=== PATIENT | male | born 1950 | race Caucasian/White ===

== ENCOUNTER 2016-06-17 12:19 | Inpatient (IN) | payer OTHER ==
[2016-06-17] MEDS ORDERED: ACETAMINOPHEN 325 MG TAB PO PRN (13:15)
--- NOTE | 2016-06-17 13:30 | PDCARPN ---
Cardiology Progress Note Chief Complaint: long-standing persistent AF Assessment/Plan: Assessment: 65y/o M PMH PAF, PVCs, likely NICM with LVEF 45%, here for Sotalol dose increase and likely DCCV. #. persistent AF. He reports feeling mostly well but does note that his HR will feel irregular in the evenings when he is sitting/readin has not noted any decline in exercise tolerance #. likely NICM. EF is now 45%/ decrement thought to be due to loss of atrial kick #. LOS: needs to be inpatient for Sotalol dosing #. DVT ppx: on Warfarin and plan for ad akrma activity 06/17/16 13:24 Subjective: Feels well. No cp, dyspnea, pnd/orthopnea, peripheral edema. Objective: Vital Signs (8 Hrs) Temp Pulse Resp BP Pulse Ox 06/17/16 12:41 98.4 F 87 16 127/80 H 91 L Echocardiogram: Echo from our office 05/22/16: EF 40-45%, impaired diastolic fxn; LA severe dilated, RA mod-severe dilated, mild MR, RV mild dilated - Physical Exam Constitutional: healthy appearing, no apparent distress Eyes: PERRL Ears, Nose, Mouth, Throat: moist mucous membranes Cardiovascular: no murmurs, no rubs, irregularly irregular Respiratory: clear to auscultate bilat, no crackles Gastrointestinal: normoactive bowel sounds, no tenderness Genitourinary: no suprapubic tenderness, No madden in urethra Skin: no rashes, no abrasions Neurologic: AAOx3 Psychiatric: cooperative, interactive ICD10 Worksheet Patient Problems: Problems Problem Status Diagnosed Atrial fibrillation Acute HTN (hypertension) Acute PVCs (premature ventricular contractions) Acute
--- NOTE | 2016-06-17 13:31 | CPEKG ---
Heart Rate: 104 RR Interval: 577 QRSD Interval: 88 QT Interval: 368 QTC Interval: 484 QRS [place]: 23 T Wave [place]: 59 EKG Severity - ABNORMAL ECG - EKG Impression: ATRIAL FIBRILLATION EKG Impression: RUN OF VENTRICULAR PREMATURE COMPLEXES EKG Impression: BORDERLINE INFERIOR Q WAVES EKG Impression: BORDERLINE T ABNORMALITIES, LATERAL LEADS Electronically Signed By: Ciaran Collado 17-Jun-2016 13:41:07
[2016-06-17] MEDS ORDERED: SOTALOL HCL 80 MG TAB PO SCH (14:00)
[2016-06-17 14:08] LABS: % IMMATURE GRANULYOCYTES 0.4 % (0.0-1.1); ABSOLUTE IMMATURE GRANULOCYTES 0.02 10^3/uL (0.00-0.10); ADD DIFF? NO; ADD MORPH? NO; ADD SCAN? NO; ATYPICAL LYMPHOCYTE FLAG 10 (0-99); FRAGMENT RBC FLAG 0 (0-99); HEMATOCRIT 49.6 % (40.0-51.0); HEMOGLOBIN 16.9 g/dL (13.7-17.5); LEFT SHIFT FLG 10 (0-99); LIPEMIA HEMOLYSIS FLAG 90 (0-99); MEAN CELL HEMOGLOBIN 30.2 pg (27.9-34.1); MEAN CELL HEMOGLOBIN CONCENTR. 34.1 g/dL (32.4-36.7); MEAN CELL VOLUME 88.6 fL (81.5-99.8); MEAN PLATELET VOLUME 10.1 fL (8.7-11.7); PLATELET CLUMPS FLAG 0 (0-99); PLATELET COUNT 146 10^3/uL (150-400); RED CELL DISTRIBUTION WIDTH 14.4 % (11.5-15.2)
[2016-06-17 14:19] LABS: INR 2.36 (0.83-1.16)
[2016-06-17 14:20] LABS: ANION GAP 12 mEq/L (8-16); APTT 35.4 SEC (23.0-38.0); CALCIUM 9.1 mg/dL (8.5-10.4); CARBON DIOXIDE 23 mEq/l (22-31); CHLORIDE 108 mEq/L (97-110); CREATININE 0.8 mg/dL (0.7-1.3); GLOMERULAR FILTRATION RATE > 60; GLUCOSE 82 mg/dL (70-100); MAGNESIUM 1.9 mg/dL (1.6-2.3); SODIUM 143 mEq/L (134-144)
[2016-06-17] MEDS ORDERED: SOTALOL HCL 80 MG TAB PO ONE (14:25)
[2016-06-17] MEDS ORDERED: WARFARIN SODIUM 5 MG TAB PO SCH ×2 (16:00→18:00)
--- NOTE | 2016-06-17 18:05 | CPEKG ---
Heart Rate: 107 RR Interval: 561 QRSD Interval: 92 QT Interval: 384 QTC Interval: 513 QRS Max: 13 T Wave Max: 82 EKG Severity - ABNORMAL ECG - EKG Impression: ATRIAL FIBRILLATION, V-RATE 66-84 EKG Impression: PAIRED VENTRICULAR PREMATURE COMPLEXES EKG Impression: BORDERLINE T WAVE ABNORMALITIES Electronically Signed By: Ruben Peterson 18-Jun-2016 14:18:16
[2016-06-17] MEDS: diphenhydrAMINE 25 MG CAP PO PRN (20:53)
[2016-06-18 05:03] LABS: INR 2.5 (0.83-1.16); PROTIME(PATIENT) 27.3 SEC (12.0-15.0)
[2016-06-18 05:31] LABS: ANION GAP 12 mEq/L (8-16); CALCIUM 8.4 mg/dL (8.5-10.4); CARBON DIOXIDE 22 mEq/l (22-31); CHLORIDE 108 mEq/L (97-110); CREATININE 0.8 mg/dL (0.7-1.3); GLOMERULAR FILTRATION RATE > 60; GLUCOSE 89 mg/dL (70-100); MAGNESIUM 1.9 mg/dL (1.6-2.3); POTASSIUM 4.1 mEq/L (3.5-5.2); SODIUM 142 mEq/L (134-144)
--- NOTE | 2016-06-18 05:38 | CPEKG ---
Heart Rate: 74 RR Interval: 811 QRSD Interval: 86 QT Interval: 432 QTC Interval: 480 QRS [place]: 30 T Wave [place]: 64 EKG Severity - ABNORMAL ECG - EKG Impression: ATRIAL FIBRILLATION, V-RATE 64-80 EKG Impression: LEFT VENTRICULAR HYPERTROPHY EKG Impression: BORDERLINE PROLONGED QT INTERVAL Electronically Signed By: Ruben Peterson 18-Jun-2016 14:18:10
[2016-06-18] MEDS ORDERED: SOTALOL HCL 80 MG TAB PO SCH (06:00)
--- NOTE | 2016-06-18 08:52 | CPEKG ---
Heart Rate: 65 RR Interval: 923 QRSD Interval: 96 QT Interval: 432 QTC Interval: 450 QRS [place]: 37 T Wave [place]: 72 EKG Severity - ABNORMAL ECG - EKG Impression: ATRIAL FIBRILLATION, V-RATE 51-76 EKG Impression: VENTRICULAR PREMATURE COMPLEX EKG Impression: LEFT VENTRICULAR HYPERTROPHY Electronically Signed By: Ruben Peterson 18-Jun-2016 14:18:03
[2016-06-18] MEDS: BENAZEPRIL HCL 20 MG TAB PO SCH (10:12)
[2016-06-18] MEDS: MULTIVITAMINS 1 EACH TAB PO SCH (10:13)
--- NOTE | 2016-06-18 13:54 | PDCARPN ---
Cardiology Progress Note Chief Complaint: AF Assessment/Plan: Assessment: 65y/o M PMH PAF, PVCs, likely NICM with LVEF 45%, here for Sotalol dose increase and likely DCCV. #. persistent AF. He reports feeling mostly well but does note that his HR will feel irregular in the evenings when he is sitting/reading has not noted any decline in exercise tolerance #. likely NICM. EF is now 45%/ decrement thought to be due to loss of atrial kick #. LOS: needs to be inpatient for Sotalol dosing likely DC tomorrow after DCCV #. DVT ppx: on Warfarin and plan for ad karma activity 06/18/16 13:53 Subjective: Feels well. Objective: Vital Signs (8 Hrs) Temp Pulse Resp BP Pulse Ox 06/18/16 11:38 97.6 F 54 L 20 116/78 95 06/18/16 07:48 98.6 F 58 L 13 121/79 H 95 Intake/Output (24 Hrs) 06/17/16 06/18/16 06/19/16 05:59 05:59 05:59 Intake Total 400 Balance 400 Intake: Oral (ml) 400 Other: Weight 95.254 kg Intake Quantity Yes Sufficient Result Diagrams: 06/17/16 14:00 06/18/16 03:58 Telemetry: AF - Physical Exam Constitutional: healthy appearing, no apparent distress Cardiovascular: irregularly irregular ICD10 Worksheet Patient Problems: Problems Problem Status Diagnosed Atrial fibrillation Acute HTN (hypertension) Acute PVCs (premature ventricular contractions) Acute
[2016-06-18] MEDS ORDERED: WARFARIN SODIUM 5 MG TAB PO SCH ×2 (16:00→18:00)
[2016-06-18] MEDS: SOTALOL HCL 80 MG TAB PO SCH (19:07)
[2016-06-18] MEDS: diphenhydrAMINE 25 MG CAP PO PRN (21:09)
[2016-06-19 05:14] LABS: INR 2.39 (0.83-1.16); PROTIME(PATIENT) 26.3 SEC (12.0-15.0)
[2016-06-19 05:15] LABS: APTT 36.3 SEC (23.0-38.0)
[2016-06-19 05:36] LABS: ANION GAP 8 mEq/L (8-16); CALCIUM 8.4 mg/dL (8.5-10.4); CARBON DIOXIDE 25 mEq/l (22-31); CHLORIDE 108 mEq/L (97-110); CREATININE 0.8 mg/dL (0.7-1.3); GLOMERULAR FILTRATION RATE > 60; GLUCOSE 91 mg/dL (70-100); POTASSIUM 4.2 mEq/L (3.5-5.2); SODIUM 141 mEq/L (134-144)
[2016-06-19] MEDS: SOTALOL HCL 80 MG TAB PO SCH (06:21)
[2016-06-19] MEDS: MULTIVITAMINS 1 EACH TAB PO SCH (08:33)
[2016-06-19] MEDS: BENAZEPRIL HCL 20 MG TAB PO SCH (08:33)
--- NOTE | 2016-06-19 09:04 | CPEKG ---
Heart Rate: 66 RR Interval: 909 QRSD Interval: 88 QT Interval: 444 QTC Interval: 466 QRS [place]: 5 T Wave [place]: 71 EKG Severity - ABNORMAL ECG - EKG Impression: ATRIAL FIBRILLATION, V-RATE 42-83 EKG Impression: VENTRICULAR TRIGEMINY EKG Impression: CONSIDER LEFT VENTRICULAR HYPERTROPHY Electronically Signed By: Ruben Peterson 19-Jun-2016 15:03:44
[2016-06-19] MEDS ORDERED: MIDAZOLAM 2 MG/2 ML VIAL IVP ONE (10:00)
[2016-06-19] MEDS ORDERED: ATROPINE SULFATE 1 MG/10 ML SYR ONE (10:39)
[2016-06-19] MEDS ORDERED: PROPOFOL 200 MG/20 ML VIAL ONE ×4 (11:31→13:41)
--- NOTE | 2016-06-19 12:14 | CPEKG ---
Heart Rate: 59 RR Interval: 1017 P-R Interval: 220 QRSD Interval: 92 QT Interval: 456 QTC Interval: 452 P [place]: 31 QRS [place]: -5 T Wave [place]: 46 EKG Severity - ABNORMAL ECG - EKG Impression: SINUS RHYTHM EKG Impression: FIRST DEGREE AV BLOCK Electronically Signed By: Ruben Peterson 19-Jun-2016 15:03:36
--- NOTE | 2016-06-19 13:33 | EPPROC ---
Electrophysiology Procedure Note: Procedure: CV Indication: Symptomatic AF Procedure: Pt underwent JOSÉ which is reported separately. No LA clot. pt underwent 200J of DCCV with successful conversion to SR. Conclusion: Successful CV Patient Problems: Problems Problem Status Diagnosed Atrial fibrillation Acute HTN (hypertension) Acute PVCs (premature ventricular contractions) Acute
[2016-06-19] MEDS ORDERED: fentaNYL 100 MCG/2 ML INJ ONE (13:38)
[2016-06-19 14:08] VITALS: BP 118/82; PULSE 59; RESP 18; TEMP 98.2; O2SAT 92
--- NOTE | 2016-06-19 15:05 | CPEKG ---
Heart Rate: 76 RR Interval: 789 QRSD Interval: 90 QT Interval: 416 QTC Interval: 468 QRS [place]: 11 T Wave [place]: 75 EKG Severity - ABNORMAL ECG - EKG Impression: ATRIAL FIBRILLATION EKG Impression: MULTIFORM VENTRICULAR PREMATURE COMPLEXES EKG Impression: BORDERLINE T WAVE ABNORMALITIES Electronically Signed By: Ruben Peterson 19-Jun-2016 15:03:53
--- NOTE | 2016-06-20 11:55 | GDS ---
[f rep st] DISCHARGE SUMMARY DISCHARGE DIAGNOSES: 1. Persistent atrial fibrillation status post sotalol titration on this admission with increased dos e from 80 mg to 120 mg p.o. b.i.d. 2. Likely nonischemic cardiomyopathy with a recent decrement in ejection fraction to 45%, likely due to loss of atrial kick in presence of persistent atrial fibrillation. 3. Diarrhea with Sapovirus found on gastrointestinal panel on this admission. PROCEDURES: 1. Transesophageal echocardiography cardioversion on 06/19/2016 with alevism of sinus rhythm. 2. Serial electrocardiograms. BRIEF HISTORY: Please see dictated H and P from our office for complete details. In brief, the efrain ent is a 65-year-old male with a known history of atrial fibrillation that had been previously contro lled on sotalol. Over the past few months, he has had persistent AFib. His ejection fraction was de creased to 45%. He was brought in for increase of his sotalol dose from 80 mg p.o. b.i.d. to 120 mg p.o. b.i.d. He tolerated this increase well. On day of discharge, he was cardioverted. He did noti ce some diarrhea through his hospital course. GI panel was obtained and it showed Sapovirus. He was advised on supportive measures for this. RESULTS PENDING: None. DIET: Per previous. ACTIVITY: As tolerated. DISCHARGE MEDICATIONS: Please see medication reconciliation for complete detail. He is being discharged on his home warfarin, multivitamin, amlodipine, benazepril. His sotalol dose has been increased to 120 p.o. b.i.d. and a prescription has been sent to his pharmacy. FOLLOWUP: 1. Follow up with an EKG in 1 week's time. 2. Follow up with Dr. Collado in 1 month's time. /[id number]/MODL
== END 2016-06-19 15:25 | disposition home or self-care (01) | DRG 309 ==
LOC: F2W 12:19 → OBSVTOIN 12:41
PROVIDERS: ADMIT Internal Medicine Cardiovascular Disease; ATTEND Internal Medicine Cardiovascular Disease
PROC: B245ZZ4 Ultrasonography of Left Heart, Transesophageal (ICD-10-PCS; principal; 2016-06-19)
PROC: 5A2204Z Restoration of Cardiac Rhythm, Single (ICD-10-PCS; principal; 2016-06-19)
DX: I48.1 Persistent atrial fibrillation (principal); A08.39 Other viral enteritis; I42.9 Cardiomyopathy, unspecified
CPT/HCPCS: J0461; J2250; J2704; J3010

== ENCOUNTER → 2016-08-13 | Outpatient (CLI) | payer OTHER | LOC: BHFA 10:45 | PROVIDERS: ATTEND Internal Medicine Cardiovascular Disease | DX: I48.91 Unspecified atrial fibrillation (principal); R00.2 Palpitations ==

== ENCOUNTER → 2017-03-05 | Outpatient (CLI) | payer OTHER | LOC: BHFA 09:00 | PROVIDERS: ATTEND Internal Medicine Cardiovascular Disease | DX: I49.3 Ventricular premature depolarization (principal) ==

== ENCOUNTER → 2017-03-06 | Outpatient (CLI) | payer OTHER | LOC: BHFA 13:00 | PROVIDERS: ATTEND Internal Medicine Interventional Cardiology | DX: I48.91 Unspecified atrial fibrillation (principal); I49.3 Ventricular premature depolarization; I49.1 Atrial premature depolarization; I10 Essential (primary) hypertension | CPT/HCPCS: 78452; 93017; A9500; J2785 ==

== ENCOUNTER → 2017-09-10 | Outpatient (CLI) | payer OTHER | LOC: BHFA 09:00 | PROVIDERS: ATTEND Internal Medicine Cardiovascular Disease | DX: I49.3 Ventricular premature depolarization (principal) ==

== ENCOUNTER → 2017-09-23 | Outpatient (CLI) | payer OTHER | LOC: BHFA 09:15 | PROVIDERS: ATTEND Internal Medicine Cardiovascular Disease | DX: I49.3 Ventricular premature depolarization (principal) ==

== ENCOUNTER → 2018-04-28 | Outpatient (CLI) | payer OTHER | LOC: BHFA 10:00 | PROVIDERS: ATTEND Internal Medicine Cardiovascular Disease | DX: I48.91 Unspecified atrial fibrillation (principal) ==

== ENCOUNTER 2018-05-10 10:04 | Day surgery (SDC) | payer OTHER ==
[2018-05-10] MEDS ORDERED: BENZOCAINE UNIT DOSE SPRAY HURRICAINE MM ONE (10:06)
[2018-05-10] MEDS ORDERED: fentaNYL 100 MCG/2 ML INJ IVP ONE (10:06)
[2018-05-10] MEDS ORDERED: MIDAZOLAM 2 MG/2 ML VIAL IVP ONE (10:06)
[2018-05-10] MEDS ORDERED: ATROPINE SULFATE 1 MG/10 ML SYR IVP ONE (10:06)
[2018-05-10] MEDS ORDERED: NS 500 ML IV ONE (10:06)
[2018-05-10 10:49] LABS: INR 2.44 (0.83-1.16); PROTIME(PATIENT) 26.5 SEC (12.0-15.0)
--- NOTE | 2018-05-10 11:59 | PDHPUP ---
History & Physical Update H&P update statement: This history and physical update is based on an assessment of the patient which was completed after admission or registration (within 24 hours), but prior to the surgery/procedure. H&P update: H&P reviewed & patient examined, no change in patient's condition since H&P completed
--- NOTE | 2018-05-10 12:04 | PDANEPAE ---
ANE History of Present Illness A-fib ANE Past Medical History - Cardiovascular History Hx Hypertension: Yes Hx Arrhythmias: Yes - Pulmonary History Hx Oxygen in Use at Home: No Hx Sleep Apnea: No - Endocrine History Hx Diabetes: No ANE Review of Systems Review of Systems: ANE Patient History - Allergies Allergies/Adverse Reactions: No Known Allergies Allergy (Unverified 10/31/13 10:32) - Home Medications Home medications: home medication list seen and reviewed Home Medications: Warfarin Sodium [Coumadin 5MG (*)] 5 mg PO MWF@18 03/20/14 [Last Taken 05/07/18 18:00] Warfarin Sodium [Coumadin 5MG (*)] 7.5 mg PO SUTUTHSA@18 03/20/14 [Last Taken 18:00] Acetaminophen/Diphenhydramine [Acetaminophen-Diphenhyd 500-25] 1 tab PO HS 06/17 [Last Taken 06/16/16 21:00] Herbals/Supplements -Info Only 1 ea PO DAILY 06/17/16 [Last Taken 06/16/16 07:00 ] Multivitamins [Multivitamin (*)] 1 each PO DAILY 06/17/16 [Last Taken 06/17/16 06:00] amLODIPine BESYLATE [Norvasc 10 mg (*)] 10 mg PO DAILY 06/17/16 [Last Taken 03/18 06:00] - NPO status NPO Status: no food or drink >8 hours - Anes Hx Anes Hx: no prior problems - Smoking Hx Smoking Status: Former smoker ANE Labs/Vital Signs - Labs Result Diagrams: 05/10/18 10:20 - Vital Signs Height: 185 cm Weight: 95.3 kg ANE Physical Exam - Airway Neck exam: FROM Mallampati Score: Class 2 Mouth exam: normal dental/mouth exam - Pulmonary Pulmonary: no respiratory distress - Cardiovascular Cardiovascular: regular rate and rhythym - ASA Status ASA Status: III ANE Anesthesia Plan Anesthesia Plan: MAC (with IV brief GA)
[2018-05-10] MEDS ORDERED: ATROPINE SULFATE 1 MG/10 ML SYR ONE (12:08)
[2018-05-10] MEDS ORDERED: LIDOCAINE 1% 5 ML SDV ONE (12:11)
[2018-05-10] MEDS ORDERED: PROPOFOL 200 MG/20 ML VIAL ONE (12:11)
--- NOTE | 2018-05-10 12:28 | PDTEE1 ---
JOSÉ Cardioversion Procedure Procedure: electrical cardioversion, transesophageal echo Indications: atrial fibrillation Consent: signed and in chart Anticoagulation: warfarin Procedural Details: Sedation provided by the anesthesia service. Pads were placed in anterior- posterior position. JOSÉ probe was advanced and standard images obtained. There is no evidence of left atrial or left atrial appendage thrombus. Synchronized cardioversion attempt #1: 200J Results: normal sinus rhythm Conclusions: successful JOSÉ cardioversion Patient Problems: Problems Problem Status Onset Atrial fibrillation Acute HTN (hypertension) Acute PVCs (premature ventricular contractions) Acute
--- NOTE | 2018-05-10 12:37 | POSTANESTH ---
Post Anesthetic Evaluation Cardiovascular Status: Similar to Pre-Op Cond Respiratory Status: Similar to Pre-op Cond. Level of Consciousness/Mental Status: Can Participate in Eval Pain Control: Adequate, Prn Tx Ordered Nausea/Vomiting Control: Adequate, Prn Tx Ordered Complications Possibly Related to Anesthesia: None Noted
--- NOTE | 2018-05-10 16:15 | CPEKG ---
Test Reason : OPEN Blood Pressure : / mmHG Vent. Rate : 063 BPM Atrial Rate : 000 BPM P-R Int : 207 ms QRS Dur : 098 ms QT Int : 436 ms P-R-T Axes : 000 018 067 degrees QTc Int : 447 ms Atrial fibrillation Ventricular premature complex Confirmed by Nilton Ohara ([id number]) on 05/10/2018 4:15:00 PM Referred By: Confirmed By:Nilton Ohara
--- NOTE | 2018-05-10 16:18 | CPEKG ---
Test Reason : OPEN Blood Pressure : / mmHG Vent. Rate : 069 BPM Atrial Rate : 054 BPM P-R Int : 240 ms QRS Dur : 097 ms QT Int : 465 ms P-R-T Axes : 077 -05 055 degrees QTc Int : 499 ms Sinus rhythm Ventricular trigeminy First degree AV block Borderline prolonged QT interval Confirmed by Nilton Ohara ([id number]) on 05/10/2018 4:18:25 PM Referred By: Confirmed By:Nilton Ohara
--- NOTE | 2018-05-10 23:28 | ECHO ---
[email or web address] [address] [address] Main: [phone] Fax: Transesophageal Echocardiography Name: JAUN KELLEY MR#: [id number] Study Date: 05/10/2018 Study Time: 12:02 PM Date of : 1950 Age: 67 year(s) Height: ( ) Weight: ( ) BSA: Gender: Male Examination: JOSÉ Indication: Pre Cardioversion Image Quality: Contrast: Requested by: Amalia Martinez Heart Rate: Rhythm: Atrial fibrillation BP: / Procedure Staff Oil Producer: Gautam Raines RDCS Reading Physician: Amalia Martinez MD Requesting Provider: JOSÉ Exam Details Conclusions: Normal global systolic LV function. An agitated saline study was performed and was negative for intracardiac shunting. No thrombus in left appendage. Mild to moderate mitral regurgitation. Proceeded with successful elective DC cardioversion.. Measurements: Chambers Valvular Assessment AV/MV Valvular Assessment TV/PV Normal Normal Normal Name Value Range Name Value Range Name Value Range Additional Measurements: Findings: Left Ventricle: Normal global systolic LV function. Left Atrium: An agitated saline study was performed and was negative for intracardiac shunting. Left Atrial Appendage: Good color flow doppler in the left atrial appendage. Normal PW-Doppler flow pattern. No thrombus in left appendage. Right Atrium: The right atrium is normal in size. Patient: JAUN KELLEY Study Date: 05/10/2018 Page 1 of 2 12:02 PM Mitral Valve: The mitral valve is normal in appearance. Mild to moderate mitral regurgitation. Aortic Valve: The aortic valve is tri-leaflet. There is no aortic valve regurgitation. No aortic valve stenosis is present. Tricuspid Valve: The tricuspid valve is normal in appearance and function. Trivial tricuspid valve regurgitation. Pulmonic Valve: The pulmonic valve is normal in appearance and function. Aorta: The aorta is normal. Pericardium: No pericardial effusion. Exam Comments: Proceeded with successful elective DC cardioversion.. l1n (No Signature Object) Patient: JAUN KELLEY Study Date: 05/10/2018 Page 2 of 2 12:02 PM [id number]
== END 2018-05-10 13:35 | disposition home or self-care (01) ==
LOC: FCATH 10:04
PROVIDERS: ATTEND Internal Medicine Cardiovascular Disease
PROC: 5A2204Z Restoration of Cardiac Rhythm, Single (ICD-10-PCS; principal; 2018-05-10)
DX: I48.91 Unspecified atrial fibrillation (principal)
CPT/HCPCS: J0461; J2704

== ENCOUNTER 2018-06-09 07:01 | Day surgery (SDC) | payer OTHER ==
[2018-06-09] MEDS ORDERED: NS 500 ML IV ONE (07:05)
[2018-06-09] MEDS ORDERED: BENZOCAINE UNIT DOSE SPRAY HURRICAINE MM ONE (07:05)
[2018-06-09] MEDS ORDERED: ATROPINE SULFATE 1 MG/10 ML SYR IVP ONE (07:05)
[2018-06-09] MEDS ORDERED: MIDAZOLAM 2 MG/2 ML VIAL IVP ONE (07:05)
[2018-06-09] MEDS ORDERED: fentaNYL 100 MCG/2 ML INJ IVP ONE (07:05)
--- NOTE | 2018-06-09 07:45 | PDGENHP ---
History & Physical Chief Complaint: af, symptomatic Relevant Physical Exam: s1s2 irreg. cta ao3 Cardiorespiratory Assessment: for cv
[2018-06-09 07:58] LABS: INR 2.35 (0.83-1.16); PROTIME(PATIENT) 25.7 SEC (12.0-15.0)
[2018-06-09] MEDS ORDERED: PROPOFOL 200 MG/20 ML VIAL ONE (08:13)
--- NOTE | 2018-06-09 08:15 | PDANEPAE ---
ANE History of Present Illness a-fib with rvr ANE Past Medical History - Cardiovascular History Hx Hypertension: Yes Hx Arrhythmias: Yes Cardiovascular History Comment: h/o a-fib with rvr, cardioverted x 3, will get ablation next month - Pulmonary History Hx COPD: No Hx Asthma/Reactive Airway Disease: No Hx Recent Upper Respiratory Infection: No Hx Oxygen in Use at Home: No Hx Sleep Apnea: No - Endocrine History Hx Diabetes: No Hypothyroid: No Hyperthyroid: No Obesity: mild - Renal History Hx Renal Disorders: No - Liver History Hx Hepatic Disorders: No - Neurological & Psychiatric Hx Hx Neurological and Psychiatric Disorders: No ANE Review of Systems Review of systems is: negative Review of Systems: - Exercise capacity Exercise capacity: >=4 METS ANE Patient History - Allergies Allergies/Adverse Reactions: No Known Allergies Allergy (Unverified 10/31/13 10:32) - Home Medications Home medications: home medication list seen and reviewed Home Medications: Warfarin Sodium [Coumadin 5MG (*)] 5 mg PO MWF@18 03/20/14 [Last Taken 2 Days Ago ~06/07/18] Warfarin Sodium [Coumadin 5MG (*)] 7.5 mg PO SUTUTHSA@18 03/20/14 [Last Taken 1 Day Ago ~06/08/18] Acetaminophen/Diphenhydramine [Acetaminophen-Diphenhyd 500-25] 1 tab PO HS 06/17 [Last Taken 1 Day Ago ~06/08/18] Herbals/Supplements -Info Only 1 ea PO DAILY 06/17/16 [Last Taken 06/09/18] Multivitamins [Multivitamin (*)] 1 each PO DAILY 06/17/16 [Last Taken 06/09/18] amLODIPine BESYLATE [Norvasc 10 mg (*)] 10 mg PO DAILY 06/17/16 [Last Taken 02/17] - NPO status NPO Status: no food or drink >8 hours - Anes Hx Anes Hx: no prior problems - Smoking Hx Smoking Status: Former smoker ANE Labs/Vital Signs - Labs Result Diagrams: 06/09/18 07:25 - Vital Signs Height: 185.42 cm Weight: 95.254 kg ANE Physical Exam - Airway Neck exam: FROM Mallampati Score: Class 2 Mouth exam: normal dental/mouth exam - Pulmonary Pulmonary: no respiratory distress - Cardiovascular Cardiovascular: regular rate and rhythym - ASA Status ASA Status: II ANE Anesthesia Plan Anesthesia Plan: GA with mask
--- NOTE | 2018-06-09 08:30 | POSTANESTH ---
Post Anesthetic Evaluation Cardiovascular Status: Normal, Stable Respiratory Status: Normal, Stable Level of Consciousness/Mental Status: Can Participate in Eval Pain Control: Adequate, Prn Tx Ordered Nausea/Vomiting Control: Adequate, Prn Tx Ordered Complications Possibly Related to Anesthesia: None Noted
--- NOTE | 2018-06-09 15:43 | PDCARD ---
Cardioversion Procedure Procedure: electrical cardioversion Indications: atrial fibrillation Consent: signed and in chart Anticoagulation: warfarin Procedural Details: Pads were placed in anterior-posterior position. Synchronized cardioversion attempt #1: 100J Results: normal sinus rhythm Conclusions: successful cardioversion Patient Problems: Problems Problem Status Onset Atrial fibrillation Acute PVCs (premature ventricular contractions) Acute HTN (hypertension) Acute
--- NOTE | 2018-06-10 14:30 | CPEKG ---
Test Reason : OPEN Blood Pressure : / mmHG Vent. Rate : 072 BPM Atrial Rate : 000 BPM P-R Int : 067 ms QRS Dur : 096 ms QT Int : 435 ms P-R-T Axes : 000 005 062 degrees QTc Int : 477 ms Atrial fibrillation Paired ventricular premature complexes Borderline prolonged QT interval Confirmed by Nilton Ohara ([id number]) on 06/10/2018 2:29:48 PM Referred By: Confirmed By:Nilton Ohara
--- NOTE | 2018-06-10 14:31 | CPEKG ---
Test Reason : OPEN Blood Pressure : / mmHG Vent. Rate : 051 BPM Atrial Rate : 048 BPM P-R Int : 227 ms QRS Dur : 095 ms QT Int : 456 ms P-R-T Axes : 046 000 054 degrees QTc Int : 420 ms Sinus rhythm Ventricular trigeminy First degree AV block. Confirmed by Nilton Ohara ([id number]) on 06/10/2018 2:30:45 PM Referred By: Confirmed By:Nilton Ohara
== END 2018-06-09 09:36 | disposition home or self-care (01) ==
LOC: FCATH 07:01
PROVIDERS: ATTEND Internal Medicine Cardiovascular Disease
PROC: 5A2204Z Restoration of Cardiac Rhythm, Single (ICD-10-PCS; principal; 2018-06-09)
DX: I48.1 Persistent atrial fibrillation (principal); Z79.01 Long term (current) use of anticoagulants; I10 Essential (primary) hypertension; E66.09 Other obesity due to excess calories; Z87.891 Personal history of nicotine dependence
CPT/HCPCS: J2704

== ENCOUNTER 2018-09-30 08:33 | Day surgery (SDC) | payer OTHER ==
[2018-09-30] MEDS ORDERED: MIDAZOLAM 2 MG/2 ML VIAL IVP ONE (08:40)
[2018-09-30] MEDS ORDERED: fentaNYL 100 MCG/2 ML INJ IVP ONE (08:40)
[2018-09-30] MEDS ORDERED: BENZOCAINE UNIT DOSE SPRAY HURRICAINE MM ONE (08:40)
[2018-09-30] MEDS ORDERED: NS 500 ML IV ONE (08:40)
[2018-09-30] MEDS ORDERED: ATROPINE SULFATE 1 MG/10 ML SYR IVP ONE (08:40)
[2018-09-30 09:31] LABS: INR 2.38 (0.83-1.16); PROTIME(PATIENT) 24.8 SEC (12.0-15.0)
[2018-09-30] MEDS ORDERED: LIDOCAINE 2% 2 ML INJ ONE (10:14)
[2018-09-30] MEDS ORDERED: PROPOFOL 200 MG/20 ML VIAL ONE (10:14)
--- NOTE | 2018-09-30 10:16 | PDGENHP ---
History & Physical Chief Complaint: persistent atrial fib History of Present Illness: persistent atrial fibrillation. on coumadin, INRs consistently 2.3-2.5 range 06/2018, 08/2018, today. Relevant Physical Exam: A+Ox4, irr irr/NR, no MRG, CTAB, no focal deficits Cardiorespiratory Assessment: persistent atrial fibrillation -> DC cardioversion
--- NOTE | 2018-09-30 10:19 | PDANEPAE ---
ANE History of Present Illness afib ANE Past Medical History - Cardiovascular History Hx Hypertension: Yes Hx Arrhythmias: Yes Hx Chest Pain: No Hx Coronary Artery / Peripheral Vascular Disease: No Hx CHF / Valvular Disease: No Hx Palpitations: No Cardiovascular History Comment: h/o a-fib with rvr, cardioverted x 3, will get ablation next month - Pulmonary History Hx COPD: No Hx Asthma/Reactive Airway Disease: No Hx Recent Upper Respiratory Infection: No Hx Oxygen in Use at Home: No Hx Sleep Apnea: No - Neurologic History Hx Cerebrovascular Accident: No Hx Seizures: No Hx Dementia: No - Endocrine History Hx Diabetes: No Hypothyroid: No Hyperthyroid: No Obesity: no - Renal History Hx Renal Disorders: No - Liver History Hx Hepatic Disorders: No - Neurological & Psychiatric Hx Hx Neurological and Psychiatric Disorders: No ANE Review of Systems Review of Systems: - Exercise capacity Exercise capacity: >=4 METS ANE Patient History - Allergies Allergies/Adverse Reactions: No Known Allergies Allergy (Unverified 10/31/13 10:32) - Home Medications Home Medications: Warfarin Sodium [Coumadin 5MG (*)] 5 mg PO MWF@18 03/20/14 [Last Taken 2 Days Ago ~06/07/18] Warfarin Sodium [Coumadin 5MG (*)] 7.5 mg PO SUTUTHSA@18 03/20/14 [Last Taken 1 Day Ago ~06/08/18] Acetaminophen/Diphenhydramine [Acetaminophen-Diphenhyd 500-25] 1 tab PO HS 06/17 [Last Taken 1 Day Ago ~06/08/18] Herbals/Supplements -Info Only 1 ea PO DAILY 06/17/16 [Last Taken 06/09/18] Multivitamins [Multivitamin (*)] 1 each PO DAILY 06/17/16 [Last Taken 06/09/18] amLODIPine BESYLATE [Norvasc 10 mg (*)] 10 mg PO DAILY 06/17/16 [Last Taken 02/17] - NPO status NPO Status: no food or drink >8 hours - Smoking Hx Smoking Status: Former smoker ANE Labs/Vital Signs - Labs Result Diagrams: 09/30/18 09:00 - Vital Signs Height: 185.42 cm Weight: 99.79 kg ANE Physical Exam - Airway Mallampati Score: Class 2 Mouth exam: normal dental/mouth exam - Pulmonary Pulmonary: no respiratory distress - Cardiovascular Cardiovascular: irregularly irregular - ASA Status ASA Status: II ANE Anesthesia Plan Anesthesia Plan: GA with mask Total IV Anesthesia: Yes
[2018-09-30] MEDS ORDERED: NALOXONE HCL 0.4 MG/ML INJ IVP PRN (10:30)
--- NOTE | 2018-09-30 10:40 | EPPROC ---
Electrophysiology Procedure Note: Date: 09/30/2018 Spray Cementer: Wisam Cox MD Procedures: DC cardioversion -[id number] Indications: 68-year-old male with persistent atrial fibrillation. He has been on Coumadin with therapeutic INRs (2.4-2.5 range) documented 06/2018, 2018, today. Techniques: Following informed consent, the patient was brought to the procedure area in a fasting nonsedated state, in atrial fibrillation rhythm. Defibrillation pads were applied in an anterior-posterior orientation to the chest. IV sedation was provided by the Anesthesiology Service. After ensuring adequate sedation, a single 200 joule biphasic R-wave synchronized transcutaneous shock was delivered, resulting in termination of atrial fibrillation and resumption of sinus rhythm with occasional atrial ectopy. There was no significant sinus pause. The patient tolerated the procedure well. EBL: None Complications: None Assessment: Successful cardioversion of persistent atrial fibrillation Plan: Discharge to home Continue Coumadin with goal INR 2-3 for at least the next month Follow up in clinic Patient Problems: Problems Problem Status Onset Atrial fibrillation Acute HTN (hypertension) Acute PVCs (premature ventricular contractions) Acute
== END 2018-09-30 12:00 | disposition home or self-care (01) ==
LOC: FCATH 08:33
PROVIDERS: ATTEND Internal Medicine Cardiovascular Disease
PROC: 5A2204Z Restoration of Cardiac Rhythm, Single (ICD-10-PCS; principal; 2018-09-30)
DX: I48.1 Persistent atrial fibrillation (principal); I49.3 Ventricular premature depolarization; I10 Essential (primary) hypertension; Z79.01 Long term (current) use of anticoagulants; Z87.891 Personal history of nicotine dependence
CPT/HCPCS: J2704

== ENCOUNTER 2018-11-24 10:23 | Day surgery (SDC) | payer OTHER | END 2018-11-24 13:13 | disposition home or self-care (01) | LOC: FCATH 10:23 ==